=== PATIENT | female | born 2005 | race African-American/Black ===

== ENCOUNTER 2025-06-07 14:41 | Emergency (ER) | payer MEDICAID ==
[~2025-06-07] VITALS: Ht 152.4 cm; Wt 50.0 kg
[~2025-06-07 14:41] MED LIST: ALBUTEROL
[2025-06-07 14:44] VITALS: BP 108/70; PULSE 87; RESP 18; TEMP 36.9; O2SAT 100
[2025-06-07] MEDS ORDERED: ACETAMINOPHEN 500MG TABLET PO ONE (15:45)
[2025-06-07] MEDS ORDERED: TETANUS, DIPHTHERIA, PERTUSSIS VAC/PF 0.5ML (>10YR OLD) IM ONE (15:45)
[2025-06-07] MEDS ORDERED: LIDOCAINE HCL 1% 20ML VIAL INL ONE (15:45)
[2025-06-07] MEDS ORDERED: IBUPROFEN 600MG TABLET PO ONE (15:45)
== END 2025-06-07 18:23 | disposition left against medical advice (07) ==
LOC: ER 14:41
DX: S61.411A Laceration without foreign body of right hand, initial encounter (principal); Z53.21 Procedure and treatment not carried out due to patient leaving prior to being seen by health care provider; X58.XXXA Exposure to other specified factors, initial encounter; Y93.9 Activity, unspecified; Y92.89 Other specified places as the place of occurrence of the external cause; Y99.8 Other external cause status
CPT/HCPCS: 99281